=== PATIENT | female | born 1995 | race Caucasian/White ===

== ENCOUNTER → 2016-06-26 | Outpatient (CLI) | payer OTHER | LOC: COL.RAD 14:36 | DX: B27.80 Other infectious mononucleosis without complication (principal); R10.12 Left upper quadrant pain ==

== ENCOUNTER 2018-06-04 07:01 | Day surgery (SDC) | payer BC ==
[~2018-06-04] VITALS: Ht 172.7 cm; Wt 51.1 kg
[2018-06-04 07:28] VITALS: BP 120/82; PULSE 91; TEMP 97.1
[2018-06-04] MEDS ORDERED: WELLBUTRIN XL300 M1 PO (07:40)
[2018-06-04] MEDS ORDERED: LO LOESTRIN FE1 TAB PO (07:40)
[2018-06-04] MEDS ORDERED: VITAMIND3 5000 PO (07:41)
--- NOTE | 2018-06-04 07:41 | NUR ---
TO RM AT 0710- CALL LIGHT IN REACH MOTHER AT BEDSIDE.
[2018-06-04 08:40] VITALS: BP 125/60; PULSE 86; TEMP 97.6
--- NOTE | 2018-06-04 08:40 | NUR ---
PT TO BAY 2 VIA CART FROM [facility] ROOM. PT WALKED TO CHAIR, MOM IN ROOM, CALL LIGHT IN REACH
[2018-06-04 08:55] VITALS: BP 104/72; PULSE 73
--- NOTE | 2018-06-04 09:00 | NUR ---
INTO SEE PT AND MOTHER. INT D'CD INTACT
[2018-06-04 09:15] VITALS: BP 105/63; PULSE 72
--- NOTE | 2018-06-04 09:15 | NUR ---
DISCHARGE INST. GIVEN TO PT WITH VERBAL UNDERSTANDING. PT DRESSED AND UP IN ROOM, NO C/O
--- NOTE | 2018-06-04 09:30 | NUR ---
PT DISCHARGED VIA W/C TO CAR WITH MOM
== END 2018-06-04 09:30 | disposition home or self-care (01) ==
LOC: SDCO 07:01
DX: K58.0 Irritable bowel syndrome with diarrhea (principal); R63.4 Abnormal weight loss; K59.00 Constipation, unspecified
CPT/HCPCS: OP; J2250; J2405; J3010; J7030